=== PATIENT | female | born 1960 | race African-American/Black ===

== ENCOUNTER 2016-09-22 15:00 | Emergency (ER) | payer BC ==
[~2016-09-22 15:00] MED LIST: MAX25 PO
== END 2016-09-22 15:28 | disposition home or self-care (01) ==
LOC: ER 15:00
DX: S83.91XA Sprain of unspecified site of right knee, initial encounter (principal); I10 Essential (primary) hypertension; Z79.899 Other long term (current) drug therapy
CPT/HCPCS: 73560-RT; 99283; A9270-GY